=== PATIENT | female | born 1950 | race American Indian/Alaskan Native ===

== ENCOUNTER 2019-10-14 22:13 | Emergency (ER) | payer MEDICARE ==
[2019-10-15] MEDS ORDERED: oxyCODONE /ACETAMINOPHEN 5-325MG TAB PO ONE (00:04)
[2019-10-15] MEDS ORDERED: COLCHICINE 0.6 MG CAP PO ONE (00:04)
[2019-10-15] MEDS ORDERED: ONDANSETRON 4 MG/2 ML INJ IV ONE (00:04)
[2019-10-15] MEDS ORDERED: MORPHINE 4 MG/1 ML INJ IV ONE (00:04)
--- NOTE | 2019-10-15 00:05 | Emergency Department Report ---
ED Lower Extremity HPI - General Chief Complaint: Extremity Injury, Lower Stated Complaint: GOUT Time Seen by Provider: 10/14/19 23:55 Source: patient, EMS Mode of arrival: Wheelchair Limitations: Physical Limitation - History of Present Illness Initial Comments: CC: "The gout." HPI: This is a 68-year-old female with history of diabetes mellitus, heart failure, gout who presents with bilateral knee pain bilateral foot pain for several days. She states that she has a "buildup of uric acid". She normally requires Percocet for pain relief. The pain began 3 days ago. Tylenol did not provide any relief. She arrived per EMS. No trauma. She has a history of bilateral knee replacements. However she does have gout flares involving her knee according to her report. She has pain at the first 2 toes of both feet. No trauma. Complaint: other (Gout flare) -: Gradual, days(s) (3) Injury: Knee: Right, Left, Foot: Right, Left, Toes: Left, Right Severity: severe Improves With: nothing Worsens With: weight bearing Context: other (History of gout) Associated Symptoms: swelling, able to partially bear weight - Related Data Previous Rx's Medication Instructions Recorded Last Taken Type Colchicine 0.6 mg PO DAILY 7 Days #7 capsule 10/15/19 Unknown Rx oxyCODONE /ACETAMINOPHEN [Percocet 1 tab PO Q6HR PRN #15 tab 10/15/19 Unknown Rx 5/325] Allergies Allergy/AdvReac Type Severity Reaction Status Date / Time No Known Allergies Allergy Verified 10/14/19 22:37 ED Review of Systems ROS: Stated complaint: GOUT Other details as noted in HPI Comment: All other systems reviewed and negative Constitutional: denies: fever, malaise Respiratory: denies: cough Cardiovascular: denies: chest pain Gastrointestinal: denies: abdominal pain, nausea, vomiting Musculoskeletal: joint swelling, arthralgia ED Past Medical Hx - Past Medical History Previous Medical History?: Yes Hx Hypertension: Yes Hx Congestive Heart Failure: Yes Hx Diabetes: Yes Hx Arthritis: Yes (gout) - Surgical History Past Surgical History?: Yes Hx Coronary Stent: Yes (x2) Hx Internal Defibrillator: Yes Additional Surgical History: bilateral knee replacement. right hip replacement - Social History Smoking Status: Never Smoker Substance Use Type: None - Medications Home Medications: Home Medications Medication Instructions Recorded Confirmed Last Taken Type Colchicine 0.6 mg PO DAILY 7 Days #7 capsule 10/15/19 Unknown Rx oxyCODONE /ACETAMINOPHEN [Percocet 1 tab PO Q6HR PRN #15 tab 10/15/19 Unknown Rx 5/325] ED Physical Exam - General Limitations: Physical Limitation General appearance: alert, in no apparent distress, other (Patient appears in pain especially during transfer from wheelchair to stretcher) - Head Head exam: Present: atraumatic, normocephalic - Eye Eye exam: Present: normal appearance - ENT ENT exam: Present: mucous membranes moist - Neck Neck exam: Present: normal inspection, full ROM - Respiratory Respiratory exam: Present: normal lung sounds bilaterally. Absent: respiratory distress, wheezes, rales, rhonchi - Cardiovascular Cardiovascular Exam: Present: regular rate, normal rhythm, normal heart sounds. Absent: systolic murmur, diastolic murmur, rubs, gallop - GI/Abdominal GI/Abdominal exam: Present: soft, normal bowel sounds. Absent: distended, tenderness, guarding, rebound - Extremities Exam Extremities exam: Present: other (Surgical scars both knees both knees mildly edematous diffusely tender without erythema) - Neurological Exam Neurological exam: Present: alert, oriented X3 - Psychiatric Psychiatric exam: Present: normal affect, normal mood - Skin Skin exam: Present: warm, dry, intact, normal color, other (Swelling and tenderness at the first MTP of both feet left greater than right). Absent: rash ED Course Vital Signs 10/14/19 10/14/19 10/15/19 22:33 22:37 00:32 Temperature 100.4 F H Pulse Rate 127 H Respiratory 20 18 Rate Blood Pressure 168/98 O2 Sat by Pulse 95 Oximetry 10/15/19 00:50 Temperature Pulse Rate Respiratory 18 Rate Blood Pressure O2 Sat by Pulse Oximetry ED Lower Extremity MDM - Medical Decision Making Gout flare gout exacerbation do not suspect cellulitis or septic arthritis Treatment provided in the emergency department includes colchicine, indomethacin, morphine, Zofran, Percocet. Patient did have pain relief. I have prescribed Percocet colchicine. She is discharged home. Critical care attestation.: If time is entered above; I have spent that time in minutes in the direct care of this critically ill patient, excluding procedure time. ED Disposition Clinical Impression: Exacerbation of gout Disposition: - TO HOME OR SELFCARE Is pt being admited?: No Does the pt Need Aspirin: No Condition: Stable Instructions: Acute Gouty Arthritis (ED) Prescriptions: Colchicine 0.6 mg PO DAILY 7 Days #7 capsule oxyCODONE /ACETAMINOPHEN [Percocet 5/325] 1 tab PO Q6HR PRN #15 tab PRN Reason: Pain , Severe (7-10) Referrals: PRIMARY CARE,MD [Primary Care Provider] - 3-5 Days
[2019-10-15] MEDS ORDERED: INDOMETHACIN 25 MG CAP PO ONE (00:25)
[2019-10-15] MEDS ORDERED: ONDANSETRON 4 MG ODT TAB ONE (00:42)
[2019-10-15] MEDS ORDERED: MORPHINE 4 MG/1 ML INJ IM ONE (00:49)
[2019-10-15] MEDS ORDERED: ONDANSETRON 4 MG ODT TAB PO ONE (00:50)
[2019-10-15 02:45] VITALS: BP 139/82
== END 2019-10-15 04:40 | disposition home or self-care (01) ==
LOC: ED 22:13
DX: M10.9 Gout, unspecified (principal); I11.0 Hypertensive heart disease with heart failure; I50.9 Heart failure, unspecified; E11.9 Type 2 diabetes mellitus without complications; Z95.818 Presence of other cardiac implants and grafts; Z98.890 Other specified postprocedural states
CPT/HCPCS: 96372; 99283; J2270; J2405; Q0162